=== PATIENT | female | born 1945 | race Caucasian/White ===

== ENCOUNTER 2020-02-10 14:22 | Outpatient (CLI) | payer MEDICARE, OTHER, SELFPAY ==
--- NOTE | 2020-02-10 14:37 | MR_ITS ---
WS: [id number] MRI CERVICAL SPINE HISTORY: CERVICAL RADICULOPATHY ACUTE COMPARISON: 06/29/2014 Mild increase in cervical kyphosis. Less than 2 mm anterolisthesis of C4. There is mild disc space narrowing and desiccation throughout the cervical spine. Encroachment upon t he posterior cervical cord at C3-4 and anteriorly at C5-6 and C6-7. There is mild displacement of the cervical cord due to facet disease and osteophytes. Craniocervical junction, C1 and C2 relationship, odontoid process and soft tissues are normal. C2-C3: Shallow central disc protrusion with no stenosis. C3-C4: Normal. C4-C5: Normal. C5-C6: Small central disc protrusion which contacts the ventral cord with slight displacement. Disc o steophyte extends into the foramen with narrowing of the foramen also. Slightly greater stenosis on t he RIGHT. C6-C7: Diffuse osteophytic ridging and diffuse disc bulging. Central disc osteophyte contacts the evaristo tral cord with mild narrowing of the foramen bilaterally. Mild central stenosis. C7-T1: Mild LEFT foraminal narrowing due to osteophyte and disc disease. Paraspinal soft tissue are normal. MR/MR cervical spin wo con* [id number] IMPRESSION: 1. Mild progression of degenerative disc disease and stenosis since 2013. 2. Moderate central stenosis at C5-6 with cord contact and mild displacement. Mild bilateral foraminal stenosis, RIGHT greater than LEFT. 3. Mild central stenosis and bilateral foraminal stenosis at C6-7 due to disc osteophyte disease.
== END 2020-02-10 14:23 | disposition home or self-care (01) ==
LOC: RADWPI 14:30
PROVIDERS: Family Provider Family Medicine; PCP Family Medicine; Visit Provider Family Medicine
DX: M54.12 Radiculopathy, cervical region (principal); M50.30 Other cervical disc degeneration, unspecified cervical region; M48.02 Spinal stenosis, cervical region; M25.78 Osteophyte, vertebrae
CPT/HCPCS: 72141

== ENCOUNTER 2021-05-01 20:23 | Emergency (ER) | payer MEDICARE, OTHER, SELFPAY ==
--- NOTE | 2021-05-01 20:35 | ECG_ITS ---
[facility] Test Date: 2021-05-01 Pat Name: Sherice Mccann Department: Room: Gender: Female [employer] Salesperson: : 1945 Requested By: Niraj Allan Order Number: [id number] Reading MD: MICHAELA MEDELLIN Measurements Intervals [place] Rate: 55 P: -31 MO: 177 QRS: -8 QRSD: 83 T: 50 QT: 444 QTc: 425 Interpretive Statements SINUS BRADYCARDIA POSSIBLE RIGHT VENTRICULAR CONDUCTION DELAY [RSR (QR) IN V1/V2] Compared to ECG 02/21/2019 23:03:00 Sinus rhythm no longer present Electronically Signed On 05-02-2021 21:23:09 CDT by MICHAELA MEDELLIN [email or web address]/store/[id number]
[2021-05-01 20:42] VITALS: BP 163/91; PULSE 74; RESP 18; TEMP 37.3; O2SAT 97
[2021-05-01 21:40] VITALS: BP 160/81; PULSE 76; RESP 18; O2SAT 97
[2021-05-01 21:46] LABS: Basophils % 0.8 %; Eosinophils # 0.1 10^3/uL (0.0-0.8); Eosinophils % 1.8 %; Hematocrit 43.2 % (37.0-47.0); Hemoglobin 14.1 g/dL (11.5-15.3); Lymphocytes # 1.4 10^3/uL (0.8-4.8); Lymphocytes % 36.1 %; Mean Corpuscular HGB Conc 32.6 g/dL (30.0-36.0); Mean Corpuscular Hemoglobin 29.7 pg (28.0-34.0); Mean Corpuscular Volume 91.1 fL (81-99); Mean Platelet Volume 9.3 fL (7.4-10.4); Monocytes # 0.3 10^3/uL (0.2-0.9); Monocytes % 6.9 %; Neutrophils # 2.12 10^3/uL (1.8-7.7); Neutrophils % 53.9 %; Nucleated Red Blood Cells % 0 %; Platelet Count 155 10^3/cmm (130-400); Red Blood Count 4.74 10^6/uL (4.1-5.3); Red Cell Distribution Width 12.8 % (12.1-15.1); White Blood Count 3.9 10^3/uL (4.0-10.0)
[2021-05-01 22:06] LABS: Troponin T (5th) Once 6 ng/L (0-10)
[2021-05-01 22:16] LABS: Anion Gap 12.8 (5-19); Blood Urea Nitrogen 19 mg/dL (8-23); Calcium 8.9 mg/dL (8.5-10.5); Carbon Dioxide 26 mmol/L (22-29); Chloride 108 mmol/L (98-107); Free T4 Free Thyroxine 1.12 ng/dL (0.82-1.77); Glucose 135 mg/dL (65-115); Osmolality Calculated 300 mOsm/kg (285-295); Potassium 3.8 mmol/L (3.5-5.1); Sodium 143 mmol/L (136-145); Thyroid Stimulating Hormone 1.86 uIU/mL (0.27-4.20)
--- NOTE | 2021-05-01 23:25 | XRR_ITS ---
PROCEDURE INFORMATION: Exam: XR Chest Exam date and time: 05/01/2021 11:25 PM Age: 75 years old Clinical indication: Sternal or substernal pain; Additional info: Chest pain TECHNIQUE: Imaging protocol: XR of the chest. Views: 1 view. COMPARISON: CR Chest 1 [place] [id number] 02/21/2019 8:14 PM FINDINGS: Lungs: Moderate severity emphysema. No focal lung opacities. Pleural spaces: Unremarkable. No pleural effusion. No pneumothorax. Heart/Mediastinum: Unremarkable. No cardiomegaly. Bones/joints: Bones are demineralized. Mild severity rightward convex midthoracic spine scoliosis. No acute thoracic fractures. XR/XR chest 1V portable [id number] IMPRESSION: 1. Negative chest. No acute abnormality. 2. No change from comparison.
[2021-05-01 23:36] VITALS: BP 141/109; PULSE 61; RESP 16; O2SAT 97
[2021-05-01] MEDS: CELEcoxib 200 mg Capsule 400 MG PO (23:40)
--- NOTE | 2021-05-02 00:10 | W.ED.GENADLT ---
HPI - General Adult General: Chief complaint: Chest Pain Stated complaint: Heart Palpatation Time Seen by Provider: 05/01/21 21:38 History of Present Illness: HPI narrative: Patient is a 75-year-old female with a history of hypertension on metoprolol only followed by cardiology in [facility] presenting to the emergency room with concerns for low blood pressure. Patient has blood pressure machine at home and took her blood pressure earlier today. Patient noticed that her blood pressure was 100/70 and was was concerned because she normally has elevated blood pressure in the 150s systolic. Around that the same time, patient experienced some chest pressure, fatigue, lightheadedness during the episode. And then repeated her blood pressure 10 minutes later and noted it was elevated at 153/80. She denies any ongoing chest pain, lightheadedness, focal weakness, palpitation, nausea, vomiting, or diaphoresis. The past, patient underwent Holter monitoring for prior episodes of similar chest pressure and fatigue by her primary care provider. Onset:3 HRS AGO Duration:once Location:home Severity:mild/moderate Review of Systems Narrative: Constitutional: No fever, no chills. +fatigue/generalized weakness HEENT: No vision changes CV: +chest pain, no palpitations PULM: no cough, no dyspnea. GI: No abdominal pain, no N/V/D. : No dysuria MSKEL: No muscle pain SKIN: No new rashes, no lesions. NEURO: No headache, no focal weakness. HEME: No visible bruises PSYCH: Normal mood Physical Exam Narrative: EXAM NARRATIVE: Head: Atraumatic Eyes: PERRL, conjunctiva without injection ENT: Mucous membrane moist NECK: Supple, ROM intact LUNGS: LCTAB, no crackles/rhonchi CV: RRR ABDOMEN: Soft, nontender in all quadrants EXTREMITY: Normal ROM SKIN: No rash or erythema NEURO: Awake and alert, no focal motor deficits PSYCH: Normal mood and affect Course Vital Signs: Vital signs: Vital Signs Temperature 99.1 F 05/01/21 20:42 Pulse Rate 70 05/02/21 02:24 Respiratory Rate 16 05/02/21 02:24 Blood Pressure 145/89 05/02/21 02:24 Pulse Oximetry 96 05/02/21 02:24 MDM - General Adult MDM Narrative: Medical decision making narrative: 75-year-old female presenting to the emergency room with concerns for low blood pressure. On exam, patient had a blood pressure 160/81 in triage. Patient was observed in the emergency room, patient continues to have persistent with similar blood pressure. Patient had no chest pain, shortness of breath, palpitation while observed in the emergency room. EKG NRS of 55, MD/QRS/QT wnl, age indeterminate T wave inversions in V1-V2 discussed in detail with patient, offered admission but patient declined citing desire for close follow-up with her PCP. Instead, I recommended outpatient follow up for echo. Patient has a copy of the EKG report. Laboratory work-up including troponin x2 within normal limit. I have given patient strict follow-up with her primary care provider first in the morning for further evaluation of symptoms. It is unclear what is her source of lightheadedness and fatigue earlier today. Chest x-ray did not show any signs of focal pathologies. Disposition: Discharge. Patient is given strict return precautions for any worsening pain, shortness of breath, focal weakness, or new or concerning complaints. Lab Data: Labs: Lab Results 05/01/21 05/01/21 05/01/21 Range/Units 21:30 21:30 21:30 WBC 3.9 L (4.0-10.0) 10^3/ uL RBC 4.74 (4.1-5.3) 10^6/u L Hgb 14.1 (11.5-15.3) g/dL Hct 43.2 (37.0-47.0) % MCV 91.1 (81-99) fL MCH 29.7 (28.0-34.0) pg MCHC 32.6 (30.0-36.0) g/dL RDW 12.8 (12.1-15.1) % Plt Count 155 (130-400) 10^3/c mm MPV 9.3 (7.4-10.4) fL Neut % (Auto) 53.9 % Lymph % (Auto) 36.1 % [place] % (Auto) 6.9 % Eos % (Auto) 1.8 % Baso % (Auto) 0.8 % Neut # (Auto) 2.12 (1.8-7.7) 10^3/u L Lymph # (Auto) 1.4 (0.8-4.8) 10^3/u L [place] # (Auto) 0.3 (0.2-0.9) 10^3/u L Eos # (Auto) 0.1 (0.0-0.8) 10^3/u L Baso # (Auto) 0.0 (0.0-0.1) 10^3/u L Nucleated RBC % (a uto) 0 % Nucleated RBCs # 0.0 /100WBC Sodium 143 (136-145) mmol/L Potassium 3.8 (3.5-5.1) mmol/L Chloride 108 H (98-107) mmol/L Carbon Dioxide 26 (22-29) mmol/L Anion Gap 12.8 (5-19) BUN 19 (8-23) mg/dL Creatinine 0.5 (0.5-0.9) mg/dL GFR Calculation Not Reportable Glucose 135 H (65-115) mg/dL Calculated Osmolal ity 300 H (285-295) mOsm/k g Calcium 8.9 (8.5-10.5) mg/dL Troponin T Gen 5 n g/L 6 (0-10) ng/L Troponin T 120 Min [place] (0-10) ng/L Delta Troponin T (0-10) ABS# TSH 1.86 (0.27-4.20) uIU/ mL Free T4 1.12 (0.82-1.77) ng/d L 05/01/21 Range/Units 23:48 WBC (4.0-10.0) 10^3/ uL RBC (4.1-5.3) 10^6/u L Hgb (11.5-15.3) g/dL Hct (37.0-47.0) % MCV (81-99) fL MCH (28.0-34.0) pg MCHC (30.0-36.0) g/dL RDW (12.1-15.1) % Plt Count (130-400) 10^3/c mm MPV (7.4-10.4) fL Neut % (Auto) % Lymph % (Auto) % [place] % (Auto) % Eos % (Auto) % Baso % (Auto) % Neut # (Auto) (1.8-7.7) 10^3/u L Lymph # (Auto) (0.8-4.8) 10^3/u L [place] # (Auto) (0.2-0.9) 10^3/u L Eos # (Auto) (0.0-0.8) 10^3/u L Baso # (Auto) (0.0-0.1) 10^3/u L Nucleated RBC % (a uto) % Nucleated RBCs # /100WBC Sodium (136-145) mmol/L Potassium (3.5-5.1) mmol/L Chloride (98-107) mmol/L Carbon Dioxide (22-29) mmol/L Anion Gap (5-19) BUN (8-23) mg/dL Creatinine (0.5-0.9) mg/dL GFR Calculation Glucose (65-115) mg/dL Calculated Osmolal ity (285-295) mOsm/k g Calcium (8.5-10.5) mg/dL Troponin T Gen 5 n g/L (0-10) ng/L Troponin T 120 Min [place] 6.00 (0-10) ng/L Delta Troponin T 0 (0-10) ABS# TSH (0.27-4.20) uIU/ mL Free T4 (0.82-1.77) ng/d L Imaging Data^: Other Imaging: Radiologist's impression: Sherice Mccann 75 F [address] [address]DUei ReportSigned Patient: Sherice MccannUnit #: [id number]: 3Acct#:[id number]/Sex: 75 / FADM Date: 05/01/21Loc: ERRoom/Bed:Attending Dr: Ordering Provider/Ordering MD: Niraj Allan MD Date of Service: 05/01/21 Procedure(s): XR chest 1V portable [id number] Accession Number(s): [id number] Report Number: [id number] PROCEDURE INFORMATION: Exam: XR Chest Exam date and time: 05/01/2021 11:25 PM Age: 75 years old Clinical indication: Sternal or substernal pain; Additional info: Chest pain TECHNIQUE: Imaging protocol: XR of the chest. Views: 1 view. COMPARISON: CR Chest 1 [place] [id number] 02/21/2019 8:14 PM FINDINGS: Lungs: Moderate severity emphysema. No focal lung opacities. Pleural spaces: Unremarkable. No pleural effusion. No pneumothorax. Heart/Mediastinum: Unremarkable. No cardiomegaly. Bones/joints: Bones are demineralized. Mild severity rightward convex midthoracic spine scoliosis. No acute thoracic fractures. XR/XR chest 1V portable [id number] IMPRESSION: 1. Negative chest. No acute abnormality. 2. No change from comparison. Dictated By:Sharon Rivera By:Sharon Rivera Date/Time:05/02/21 0051DD/ 0049 Discharge Plan Discharge Clinical Impression: Chest pain, Fatigue Condition: Stable Discharge Orders: Discharge ED (Routine); Ordered 05/02/21 Ordered By: Niraj Allan Referrals: Lori Medina MD [Primary Care Provider] - Discharge Diet: Regular Discharge Activity: Resume usual activity Patient Instructions: Chest Pain (ED) Activity Restrictions/Additional Instructions: Follow-up with your primary care provider for further evaluation. Come back to the emergency room if your symptoms worsen, if you have any weakness, if you pass out, or if you have any new or concerning complaints. Coding Level of Care Code ED Internal Medicine Doctor for Melina Gunn
[2021-05-02 00:22] LABS: Troponin 5 2HR Delta 0 ABS# (0-10)
[2021-05-02 01:10] VITALS: BP 139/87; PULSE 62; RESP 19; O2SAT 98
[2021-05-02 02:24] VITALS: BP 145/89; PULSE 70; RESP 16; O2SAT 96
== END 2021-05-02 02:25 ==
PROVIDERS: Emergency Provider Emergency Medicine; PCP Family Medicine
DX: R07.9 Chest pain, unspecified (principal); R53.83 Other fatigue; I10 Essential (primary) hypertension
CPT/HCPCS: 71045; 80048; 84439; 84443; 84484; 85025; 93005; 99283

== ENCOUNTER 2022-11-07 08:48 | Emergency (ER) | payer MEDICARE, SELFPAY ==
[2022-11-07 09:01] VITALS: BMI 23.1
--- NOTE | 2022-11-07 09:03 | ECG_ITS ---
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 Measurements Intervals [place] Rate: 65 P: -2 OR: 155 QRS: -4 QRSD: 90 T: 66 QT: 399 QTc: 416 Interpretive Statements SINUS RHYTHM MINIMAL VOLTAGE CRITERIA FOR LVH, CONSIDER NORMAL VARIANT [MEETS CRITERIA IN ONE OF: R(aVL), S(V1), R(V5), R(V5/V6)+S(V1)] Compared to ECG 05/01/2021 23:26:47 Sinus bradycardia no longer present Electronically Signed On 11-07-2022 16:45:45 RECYCLE DRIVER by Sheyla Romero M.D. [id number]
[2022-11-07 09:04] VITALS: BP 185/82; PULSE 66; RESP 16; TEMP 36.1; O2SAT 98
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
--- NOTE | 2022-11-07 09:44 | XR_ITS ---
WS: [id number] Lumbar spine, 3 views, 11/07/2022 Clinical Data: Low back pain Comparison: Lumbar spine, 07/23/2021 Findings: No subluxation is seen. The L3 compression fracture has not changed. There is loss of at least 25-50% of the central vertebral body height. There is now loss of vertebral body height of L4 with depressi on of the superior and inferior endplates. There is degenerative disc narrowing at L5-S1. There is di ffuse osteoporosis. The transverse processes and SI joints are normal. There is a left hip arthroplasty. There are right upper quadrant clips from a cholecystectomy. XR/XR lumbar spine 2-3V* [id number] Impression: 1. Development of new L4 compression fracture with loss of at least 25% of the central vertebral body height. 2. No change in L3 compression fracture. 3. Degenerative disc narrowing at L5-S1 with diffuse osteoporosis.
[2022-11-07 09:50] LABS: Basophils % 0.5 %; Eosinophils # 0.1 10^3/uL (0.0-0.8); Eosinophils % 2.8 %; Hematocrit 41.4 % (37.0-47.0); Hemoglobin 13.3 g/dL (11.5-15.3); Lymphocytes # 0.9 10^3/uL (0.8-4.8); Lymphocytes % 21.8 %; Mean Corpuscular HGB Conc 32.1 g/dL (30.0-36.0); Mean Corpuscular Hemoglobin 29.2 pg (28.0-34.0); Mean Corpuscular Volume 90.8 fl (81-99); Mean Platelet Volume 9.1 fL (7.4-10.4); Monocytes # 0.3 10^3/uL (0.2-0.9); Monocytes % 6.3 %; Neutrophils # 2.68 10^3/uL (1.8-7.7); Neutrophils % 67.8 %; Nucleated Red Blood Cells % 0 %; Platelet Count 147 10^3/cmm (130-400); Red Blood Count 4.56 10^6/uL (4.1-5.3); Red Cell Distribution Width 12.7 % (12.1-15.1)
[2022-11-07 10:04] VITALS: BP 155/83; PULSE 62; RESP 18; O2SAT 97
[2022-11-07 10:04] LABS: Anion Gap 10.8 (5-19); Blood Urea Nitrogen 19 mg/dL (8-23); Calcium 9.5 mg/dL (8.5-10.5); Carbon Dioxide 28 mmol/L (22-29); Chloride 106 mmol/L (98-107); Glucose 98 mg/dL (65-115); Osmolality Calculated 294 mOsm/kg (285-295); Potassium 3.8 mmol/L (3.5-5.1); Sodium 141 mmol/L (136-145)
[2022-11-07] MEDS: ketorolac 30 mg/mL INJ IVP (10:14)
[2022-11-07] MEDS: dexamethasone 10 mg/mL INJ IVP (10:15)
[2022-11-07] MEDS: orphenadrine 30 mg/mL Inj 2 mL 60 MG IVP (10:16)
[2022-11-07 11:40] VITALS: BP 159/98; PULSE 65; RESP 18; O2SAT 97
[2022-11-07 11:42] VITALS: BP 159/98; PULSE 65; RESP 18; O2SAT 97
== END 2022-11-07 11:35 | disposition home or self-care (01) ==
PROVIDERS: Emergency Provider Family Medicine; PCP Family Medicine
DX: S32.040A Wedge compression fracture of fourth lumbar vertebra, initial encounter for closed fracture (principal); S32.030A Wedge compression fracture of third lumbar vertebra, initial encounter for closed fracture; M81.8 Other osteoporosis without current pathological fracture; I10 Essential (primary) hypertension; W20.8XXA Other cause of strike by thrown, projected or falling object, initial encounter
CPT/HCPCS: 36415; 72100; 80048; 85025; 93005; 96374; 96375; 97760; 99285; J1100; J1885; J2360; L0456

== ENCOUNTER 2022-11-17 13:51 | Outpatient (CLI) | payer MEDICARE, SELFPAY ==
--- NOTE | 2022-11-17 14:00 | XR_ITS ---
WS: [id number] DEXA (DUAL ENERGY X-RAY ABSORPTIOMETRY) Bone mineral density was performed using a Rippld machine. HISTORY: OSTEOPOROSIS COMPARISON: None available. Lumbar spine BMD (L1-L4): 0.801 g/cm2 T score: -3.2 Z score: -1.2 Total hip BMD: Right: 0.651. T score: -2.8 Z score: -0.8 Left forearm BMD: 0.541 g/cm2. T score: -3.8 Z score: -1.2 10 year probability of a major osteoporotic fracture is 30.5%. XR/XR DEXA axial skeleton* [id number] IMPRESSION: OSTEOPOROSIS based upon the WHO classification for females.
== END 2022-11-17 13:52 | disposition home or self-care (01) ==
LOC: RAD 13:58
PROVIDERS: PCP Family Medicine; Visit Provider Family Medicine
DX: M81.0 Age-related osteoporosis without current pathological fracture (principal)
CPT/HCPCS: 77080

== ENCOUNTER 2022-11-19 01:26 | Emergency (ER) | payer MEDICARE, SELFPAY ==
[2022-11-19 01:28] VITALS: BP 194/100; PULSE 65; RESP 16; TEMP 36.5; O2SAT 98
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
[2022-11-19 01:54] VITALS: BP 208/113; PULSE 71; RESP 16; O2SAT 98
[2022-11-19] MEDS: hyDRALAzine 20 mg/mL INJ 1 mL 10 MG IVP (02:06)
[2022-11-19 02:17] VITALS: BP 166/89; PULSE 66; RESP 16; O2SAT 97
[2022-11-19 03:01] VITALS: BP 151/83; PULSE 69; O2SAT 98
[2022-11-19] MEDS: HYDROcodone-acetaminophen 5-325 mg Tablet 1 TAB PO (03:34)
[2022-11-19] MEDS: LORazepam 1 mg Tablet PO (03:47)
[2022-11-19 03:55] VITALS: BP 168/80; PULSE 66; O2SAT 97
[2022-11-19 04:11] VITALS: BP 129/83; PULSE 66; RESP 16; O2SAT 98
== END 2022-11-19 04:12 | disposition home or self-care (01) ==
PROVIDERS: Emergency Provider Emergency Medicine; PCP Family Medicine
DX: R51.9 Headache, unspecified (principal); I10 Essential (primary) hypertension
CPT/HCPCS: 70450; 96374; 99285; J0360

== ENCOUNTER 2023-02-07 23:00 | Emergency (ER) | payer MEDICARE, SELFPAY ==
[2023-02-07 23:05] VITALS: BP 203/81; PULSE 56; RESP 16; TEMP 36.7; O2SAT 97; BMI 23.1
[2023-02-08 00:01] VITALS: BP 154/112; PULSE 54; RESP 16; TEMP 36.6; O2SAT 97; BMI 23.1
--- NOTE | 2023-02-08 00:15 | USR_ITS ---
PROCEDURE INFORMATION: Exam: US Duplex Right Lower Extremity Veins, Limited Exam date and time: 02/08/2023 12:55 AM Age: 77 years old Clinical indication: Pain; Leg, upper; Right; Additional info: Calf tenderness and swelling TECHNIQUE: Imaging protocol: Real-time duplex ultrasound of the right extremity with 2-D alvarado scale, color Doppler flow and spectral waveform analysis including responses to compression and other maneuvers (when performed) with image documentation. Limited exam was focused on the right lower extremity veins. COMPARISON: No relevant prior studies available. FINDINGS: Right deep veins: Unremarkable. The common femoral, femoral, proximal profunda femoral and popliteal veins are patent without thrombus. Normal Doppler waveforms. Normal compressibility and/or augmentation response. Right superficial veins: Unremarkable. Saphenofemoral junction is patent without thrombus. Soft tissues: Unremarkable. US/[place] [id number] IMPRESSION: No evidence of deep vein thrombosis.
--- NOTE | 2023-02-08 00:40 | ED_ITS ---
HPI - Extremity Problem General: Chief complaint: Extremity Problem,Nontraumatic Stated complaint: high bp Time Seen by Provider: 02/08/23 00:03 History of Present Illness: Patient is a 77-year-old female who comes to the ED with elevated blood pressure and right calf pain and swelling. Patient says today she was having elevated blood pressures with systolic number between 190-200 and occasionally her diastolic number was getting over 100. Patient says she took her dose of meto prolol this morning and then took 5 more doses throughout the day to try to lower her blood pressure. Patient is only supposed to take her metoprolol twice a day. She denies any symptoms with her elevated blood pressure such as headache, vision changes, numbness tingling or weakness to 1 side of her body or face, chest pain, shortness of breath, nausea/vomiting. Patient also states that over the last 24 hours she started developing calf pain and swelling. She denies any injury or trauma to cause right calf pain. She says pain shoots up her leg and goes all the way up into her thigh. Patient is not on a blood thinner. Associated symptoms: Deny chest pain, fever(s) or rash Review of Systems Const: Denies: fever(s), chills or fatigue Eyes: Denies: change in vision or eye discomfort ENMT: Denies: throat pain, odynophagia, nasal discharge or nasal congestion Card: Denies: chest pain, palpitations, edema, swelling of feet/ankles, dyspnea on exertion or orthopnea Resp: Denies: dyspnea, productive cough or non-productive cough GI: Denies: abdominal pain, nausea, vomiting, diarrhea, constipation or hematochezia : Denies: flank pain, dysuria or hematuria Musc: Reports: extremity pain (Right calf) and extremity swelling (Right calf); Denies: neck pain or back pain Skin/Breast: Denies: rash or new lesions Neuro: Denies: headache(s), numbness in extremities or weakness in extremities PFSH ED PFSH: Medical History Compression fracture of L4 vertebra Gastroesophageal reflux disease Hypertension Social History Smoking and tobacco status: never smoked Alcohol intake: never Physical Exam Const: COMMON NORMALS: no acute distress, patient oriented x3 and alert HENMT: COMMON NORMALS: normocephalic HEAD & SCALP: normocephalic MOUTH: Normal oral and palatal mucosa present THROAT: posterior oropharynx normal and uvula midline Neck/C-Spine: COMMON NORMALS: supple GENERAL: Yes normal visual inspection Resp: COMMON NORMALS: normal respiratory effort, No retractions, No use of accessory muscles and clear to auscultation bilaterally AUSCULTATION: clear to auscultation bilaterally Cardio: COMMON NORMALS: regular rate, regular rhythm, S1 normal heart sound present, S2 normal heart sound present, No gallops present (Cardio), No clicks present (Cardio), No murmurs present (Cardio) and Peripheral pulses 2+ throughout RATE: regular rate RHYTHM: regular rhythm HEART SOUNDS: S1 normal heart sound present and S2 normal heart sound present PERIPHERAL PULSES: Peripheral pulses 2+ throughout GI: COMMON NORMALS: Normal to inspection, nondistended, normoactive bowel sounds present, Soft to palpation, non-tender and no masses PALPATION: Yes Soft to palpation : COMMON NORMALS: Yes no CVA tenderness BLADDER/KIDNEY EXAM: Yes no CVA tenderness Back/Pelvis: COMMON NORMALS: no CVA tenderness Extremity: COMMON NORMALS: normal to inspection GENERAL: Yes calf tenderness (Right calf) and No edema Neuro: COMMON NORMALS: patient oriented x3, CN's II-XII intact bilaterally, moves all extremities, no focal motor deficits and no sensory deficits noted SENSORIUM/ORIENTATION: Yes alert COORDINATION/BALANCE: [id number] test normal SPEECH: speech normal GAIT: Yes Normal gait present MOTOR EXAM: 5/5 motor strength present throughout COORDINATION: [id number] test normal Skin: GENERAL SKIN EXAM: dry skin Course Vital Signs: Vital signs: Vital Signs Temperature 97.8 F 02/08/23 03:05 Pulse Rate 58 L 02/08/23 03:05 Respiratory Rate 16 02/08/23 03:05 Blood Pressure 138/82 02/08/23 03:05 Pulse Oximetry 97 02/08/23 03:05 Oxygen Delivery Me thod Room Air 02/07/23 23:05 MDM - Extremity (Nontraumatic) Medical Decision Making Patient is a 77-year-old female who comes to the ED with elevated blood pressure and right calf pain and swelling. Patient says today she was having elevated blood pressures with systolic number between 190-200 and occasionally her diastolic number was getting over 100. Patient says she took her dose of metoprolol this morning and then took 5 more doses throughout the day to try to lower her blood pressure. Patient is only supposed to take her metoprolol twice a day. She denies any symptoms with her elevated blood pressure such as headache, vision changes, numbness tingling or weakness to 1 side of her body or face, chest pain, shortness of breath, nausea/vomiting. Patient also states that over the last 24 hours she started developing calf pain and swelling. She denies any injury or trauma to cause right calf pain. She says pain shoots up her leg and goes all the way up into her thigh. Patient is not on a blood thinner. Her first blood pressure was 203/81, but the rest of her blood pressures while here in the ED had a systolic under 170 and diastolic under 110. The rest of her vitals were stable. Exam of patient shows some right calf tenderness but no edema noted. Neuro exam shows no deficits. Ultrasound venous duplex of right lower extremity showed no DVTs. She was stable for discharge home and diagnosed with right calf pain and hypertension. Told to follow-up with PCP in the next week for reevaluation. She was told to continue taking her blood pressure medications. Patient understood and agreed with plan. Lab Data Radiology Impressions Venous Duplex 02/08/23 00:15 IMPRESSION: No evidence of deep vein thrombosis. Discharge Plan Discharge Patient Disposition: Home Clinical Impression: Pain of right calf Hypertension Qualifiers: Hypertension type: unspecified Qualified Code(s): I10 - Essential (primary) hypertension Condition: Stable Prescriptions: No Action ibuprofen 200 mg Capsule 600 mg PO Q6H PRN (Reason: Pain) omeprazole 20 mg Capsule,Delayed Release(Dr/Ec) 20 mg PO DAILY PRN (Reason: Acid Reflux) metoprolol tartrate 25 mg tablet 12.5 mg PO BID Women's 50 Plus Daily Formula 400 mcg-500 mg calcium-20 mcg Tablet 1 tab PO DAILY hydrocodone-acetaminophen 5-325 mg tablet 1 tab PO Q6H PRN (Reason: pain) Qty: 15 0RF Discharge Orders: Discharge ED (Routine); Ordered 02/08/23 Ordered By: Akash Flannery Referrals: Lori Medina MD [Primary Care Provider] - Discharge Diet: Regular Discharge Activity: Increase activity as tolerated Activity Restrictions/Additional Instructions: Follow-up with medical provider as directed. Continue taking all home medications as previously prescribed. Return to the ER or your medical provider if condition worsens. Please read and understand discharge instructions. Thank you for choosing [facility] for your healthcare needs today. Please realize this is an emergency room and that we are providing you with a medical screening exam and this may not be complete and all inclusive of all the testing and or work up that you may need to determine your ailment or severity of your illness. It is very important that you follow up as instructed or that you return to the Emergency Department should you have concerns or if your condition changes or worsens in any way. Coding Level of Care Code ED Slope Hoist Operator for Melina Gunn
[2023-02-08 01:03] VITALS: BP 155/91; PULSE 56; RESP 16; O2SAT 94
[2023-02-08 02:13] VITALS: BP 177/91; PULSE 55; RESP 16; O2SAT 96
[2023-02-08 02:54] VITALS: BP 177/91; PULSE 58; RESP 16; O2SAT 97
[2023-02-08 03:05] VITALS: BP 138/82; PULSE 58; RESP 16; TEMP 36.6; O2SAT 97
== END 2023-02-08 03:07 | disposition home or self-care (01) ==
PROVIDERS: Emergency Provider Physician Assistant; PCP Family Medicine
DX: I10 Essential (primary) hypertension (principal); M79.18 Myalgia, other site; M79.604 Pain in right leg
CPT/HCPCS: 93971; 99284

== ENCOUNTER 2023-07-29 10:00 | Emergency (ER) | payer MEDICARE, SELFPAY ==
[2023-07-29 10:12] VITALS: BP 148/80; PULSE 52; RESP 18; TEMP 36.8; O2SAT 97; BMI 23.9
--- NOTE | 2023-07-29 10:14 | CT_ITS ---
WS: [id number] CT HEAD NONCONTRAST HISTORY: fall TECHNIQUE: Contiguous axial imaging performed through the brain in 2.5 mm imaging. Bone and soft tiss ue windows. Sagittal and coronal reformats reviewed. All CT scans at [facility] use at least one of these dose optimization techniques: automated exposure control; mA and/or kV adjustment per pa tient size (includes targeted exams where dose is matched to clinical indication); or iterative recon struction. DLP: 972.88 mGy.cm COMPARISON: 11/19/2022, 03/20/2019. Previously described dural based soft tissue mass in the anterior LEFT lateral foramen magnum is fito entified. There is displacement of the brainstem to the RIGHT and posteriorly. Very similar in appear ance to the prior examination. No obvious progression. Mass is mildly hyperdense with comparison to t he adjacent brain. Mass in the LEFT foramen magnum in the axial plane measures 2.7 x 1.0 cm. There is an additional soft tissue mass in the LEFT suprasellar cistern. This mass is less well-defin ed by unenhanced CT. No interval change. Very mild small vessel ischemic disease and atrophy. No acute intracranial hemorrhage or edema. Ventricles: Normal size with no hydrocephalus. No inferior displacement of the cerebellar tonsils. Paranasal sinuses: As visualized are clear. Mastoid air cells: Well pneumatized. Calvarium and scalp: Skull is intact with no soft tissue edema or swelling. Mild soft tissue edema centered over the RIGHT orbit and globe. IMPRESSION: 1. No acute intracranial hemorrhage or edema. 2. Patient has known previously described meningiomas in the LEFT foramen magnum and also the LEFT crow prasellar cistern. By unenhanced CT these are stable with no increase in the mass effect upon the adj acent structures. 3. No skull fracture. Mild soft tissue edema over the RIGHT orbit and globe.
--- NOTE | 2023-07-29 10:14 | XR_ITS ---
WS: [id number] Right elbow, 3 views, 07/29/2023 Clinical Data: fall Comparison: None. Findings: No fractures or dislocations are seen. The radial head is normal. There is a calcification adjacent t o the lateral humeral condyle which is probably from chronic trauma rather than acute trauma.. Impression: Negative right elbow.
--- NOTE | 2023-07-29 10:14 | XR_ITS ---
WS: [id number] Right shoulder, 3 views, 07/29/2023 Clinical Data: injury Comparison: None. Findings: There is a comminuted impacted fracture of the right humeral neck and head. The AC joint is normal. The adjacent right clavicle, right ribs and right scapula are unremarkable. Impression: Comminuted impacted fracture of right humeral head and neck.
--- NOTE | 2023-07-29 10:19 | ED_ITS ---
HPI - Extremity Problem General: Chief complaint: Extremity Injury, Upper Stated complaint: shoulder popped out of place Time Seen by Provider: 07/29/23 10:03 Source: patient Mode of arrival: ambulatory Limitations: no limitations History of Present Illness: 78-year-old female states she slipped on a stair this morning and fell. States she landed on her left side she pain her left elbow and left shoulder she also hit her head has a contusion over her right eye. Denies any loss conscious denies any headache she seen at clinic and was told she had a dislocated shoulder along with an elbow fracture she rates her pain a 6 out of 10 currently denies any other injuries denies any neck pain Associated symptoms: Deny chest pain, fever(s) or rash Review of Systems Const: Denies: fever(s), chills, body aches or change in appetite Eyes: Denies: blurry vision or eye discomfort ENMT: Denies: throat pain or dental pain Card: Denies: chest pain Resp: Denies: dyspnea GI: Denies: abdominal pain, nausea, vomiting or diarrhea Musc: Reports: extremity pain; Denies: neck pain or back pain Skin/Breast: Denies: rash Neuro: Denies: headache(s) PFSH ED PFSH: Medical History Compression fracture of L4 vertebra Gastroesophageal reflux disease Hypertension Social History Smoking and tobacco/nicotine status: never used tobacco/nicotine Alcohol intake: never Physical Exam Const: COMMON NORMALS: no acute distress and patient oriented x3 HENMT: COMMON NORMALS: normocephalic HEAD & SCALP: normocephalic OTHER: Contusion noted to right forehead Eye: COMMON NORMALS: Equal, round and reactive pupils present, EOMs intact bilaterally and conjunctivae normal CONJUNCTIVA: Yes conjunctivae normal PUPIL: Yes Equal, round and reactive pupils present Neck/C-Spine: COMMON NORMALS: full ROM and supple CERVICAL SPINE: No pain with cervical ROM and No Cervical spine tenderness Chest: COMMONS NORMALS: normal inspection of the chest and normal palpation of entire chest wall Resp: COMMON NORMALS: normal respiratory effort Extremity: NARRATIVE EXTREMITY EXAM: Tenderness over right shoulder and right elbow distal pulses sensation intact Neuro: COMMON NORMALS: patient oriented x3 Psych: COMMON NORMALS: mental status grossly normal Skin: COMMON NORMALS: no rashes or lesions noted GENERAL SKIN EXAM: no rashes or lesions noted Course Vital Signs: Vital signs: Vital Signs Temperature 98.2 F 07/29/23 10:12 Pulse Rate 52 L 07/29/23 10:12 Respiratory Rate 19 H 07/29/23 10:52 Blood Pressure 149/75 07/29/23 10:52 Pulse Oximetry 98 07/29/23 10:52 Oxygen Delivery Me thod Room Air 07/29/23 10:12 MDM - Extremity (Nontraumatic) Medical Decision Making Patient presents here with a humerus fracture head CT elbow CT are normal I did speak to orthopedist will place in a splint she is to follow-up with him return if worsening. Medical Records I reviewed the patient's medical records. All radiology interpretation(s) finalized by discharge Discharge Plan Discharge Patient Disposition: Home Clinical Impression: Fracture of proximal end of humerus, Closed head injury, Fall Condition: Stable Prescriptions: New hydrocodone-acetaminophen 5-325 mg tablet 1 tab PO Q6H PRN (Reason: pain) Qty: 14 0RF No Action ibuprofen 200 mg Capsule 600 mg PO Q6H PRN (Reason: Pain) omeprazole 20 mg Capsule,Delayed Release(Dr/Ec) 20 mg PO DAILY PRN (Reason: Acid Reflux) metoprolol tartrate 25 mg tablet 12.5 mg PO BID Women's 50 Plus Daily Formula 400 mcg-500 mg calcium-20 mcg Tablet 1 tab PO DAILY hydrocodone-acetaminophen 5-325 mg tablet 1 tab PO Q6H PRN (Reason: pain) Qty: 15 0RF Discharge Orders: Discharge ED (Routine); Ordered 07/29/23 Ordered By: Fabiano Lopez Referrals: Lori Medina MD [Primary Care Provider] - Dinh Flannery DO [Physician] - 1-3 days Discharge Diet: Advance as tolerated Discharge Activity: Resume usual activity Patient Instructions: Head Injury (ED), Proximal Humerus Fracture (ED), Opioid Safety Coding Level of Care Code ED Computer Forensics Analyst for Melina Gunn
[2023-07-29] MEDS: HYDROcodone-acetaminophen 5-325 mg Tablet 1 TAB PO (10:50)
[2023-07-29 10:52] VITALS: BP 149/75; RESP 19; O2SAT 98
--- NOTE | 2023-07-29 11:08 | CT_ITS ---
WS: [id number] CT RIGHT SHOULDER, NONCONTRAST HISTORY: right prox humerus fx Technique: All CT scans at [facility] use at least one of these dose optimization techniques: automated exposure control; mA and/or kV adjustment per patient size (includes targeted exams where dose is matched to clinical indication); or iterative reconstruction. DLP: 366.26 mGy.cm COMPARISON: Radiograph 07/29/2023 Slightly impacted, minimally comminuted and fracture involving the humeral neck. Fracture line is sli ghtly impacted by approximately 8 mm. No displacement from the glenoid. No osseous fragment within th e glenoid. There is a moderate amount of soft tissue edema surrounding the humeral head and the rotat or cuff muscles. There is a small joint effusion. AC joint narrowing but no fracture. Coracoid is intact. The adjacent visualized ribs are normal. IMPRESSION: Minimally comminuted impacted fracture involving the RIGHT humeral neck. No displacement.
--- NOTE | 2023-07-30 08:20 | DCPLANNER ---
Referral was sent to ortho on 07/30/23 at 0821. Clinic to contact patient.
== END 2023-07-29 12:32 | disposition home or self-care (01) ==
PROVIDERS: Emergency Provider Emergency Medicine; PCP Family Medicine
DX: S42.201A Unspecified fracture of upper end of right humerus, initial encounter for closed fracture (principal); S00.83XA Contusion of other part of head, initial encounter; I10 Essential (primary) hypertension; W01.0XXA Fall on same level from slipping, tripping and stumbling without subsequent striking against object, initial encounter
CPT/HCPCS: 70450; 73030; 73080; 73200; 99284

== ENCOUNTER → 2023-08-07 09:44 | Outpatient (BNVA) | payer MEDICARE, SELFPAY | PROVIDERS: PCP Family Medicine; Visit Provider Physician Assistant | DX: S42.291A Other displaced fracture of upper end of right humerus, initial encounter for closed fracture; W10.8XXA Fall (on) (from) other stairs and steps, initial encounter | CPT/HCPCS: 23600; 73030; 99203 ==

== ENCOUNTER → 2023-10-13 09:39 | Outpatient (BNVA) | payer MEDICARE, SELFPAY | PROVIDERS: PCP Family Medicine; Visit Provider Physician Assistant | DX: S42.291D Other displaced fracture of upper end of right humerus, subsequent encounter for fracture with routine healing (principal); X58.XXXD Exposure to other specified factors, subsequent encounter | CPT/HCPCS: 73030; 99213 ==

== ENCOUNTER 2023-10-16 08:15 | Outpatient (RCR) | payer MEDICARE, SELFPAY | END 2023-10-21 23:59 | disposition home or self-care (01) | LOC: SPT 08:15 | PROVIDERS: Visit Provider Physician Assistant | DX: S42.301D Unspecified fracture of shaft of humerus, right arm, subsequent encounter for fracture with routine healing (principal); X58.XXXD Exposure to other specified factors, subsequent encounter | CPT/HCPCS: 97110; 97161 ==

== ENCOUNTER 2025-02-23 15:10 | Outpatient (CLI) | payer MEDICARE, SELFPAY ==
--- NOTE | 2025-02-23 15:15 | XR_ITS ---
WS: [id number] SCREENING DEXA SCAN [employer] CLINICAL INFORMATION: ASYMPTOMATIC MENOPAUSAL STATE COMPARISON: 2022 FINDINGS: LEFT forearm bone mineral density measures 0.53. This corresponds to a T score score of -3.9 and Z score of -1.0. Right forearm bone mineral density measures 0.525. This corresponds to a T score of -4.0 of and Z score of -1.1. XR/XR DEXA axial skeleton* 20886 IMPRESSION: Osteoporosis LEFT forearm bone mineral density decreased -0.7% compared to previous
== END 2025-02-23 15:11 | disposition home or self-care (01) ==
LOC: RAD 15:13
PROVIDERS: PCP Family Medicine; Visit Provider Internal Medicine
DX: Z78.0 Asymptomatic menopausal state (principal); M81.0 Age-related osteoporosis without current pathological fracture
CPT/HCPCS: 77080

== ENCOUNTER → 2025-03-02 11:37 | Outpatient (BNVA) | payer MEDICARE, SELFPAY | PROVIDERS: PCP Family Medicine; Visit Provider Internal Medicine Cardiovascular Disease | DX: R00.0 Tachycardia, unspecified (principal); I10 Essential (primary) hypertension; R06.02 Shortness of breath; K21.9 Gastro-esophageal reflux disease without esophagitis; R07.9 Chest pain, unspecified; R06.09 Other forms of dyspnea | CPT/HCPCS: 93005; 99204 ==